=== PATIENT | male | born 1990 | race Caucasian/White ===

== ENCOUNTER 2025-07-03 10:21 | Outpatient (CLI) | payer OTHER, SELFPAY ==
--- NOTE | ~2025-07-03 | XR_ITS ---
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 Technique: 3 view. Findings: Bowel gas pattern unremarkable. No obstruction. No free air. No abnormal calcifications No acute osseous abnormality. Impression: 1. No acute abnormality. Reviewed, dictated and finalized at location P. AL TOWER OPERATOR Impression: 1. No acute abnormality.
--- OUTSIDE RECORDS SUMMARY | 2025-07-03 12:41 | XMS_ITS | Clinical Summary ---
Author Organization [facility] Address Pending sale to [facility] [place] [address] Care Team Providers Care Physician Neonatology Name Role Phone Joao Leung MD Primary Care Provider [phone] Social History Tobacco Use Types Packs/Day Years Used Date Smoking Tobacco: Never Assessed Sex and Gender Information Value Date Recorded Sex Assigned at Not on file Legal Sex Male 6:38 PM CDT Gender Identity Not on file Sexual Orientation Not on file Plan of Treatment Health Maintenance Due Date Last Done Comments Annual Physical 1991 Hepatitis C 2006 Hepatitis B Vaccines (1 of 3 - 19+ 3-dose series) 2007 HPV Vaccines (1 - 3-dose SCD M series) 2015 COVID-19 Vaccine (2024-2 6 season) 2025 04/18/2021, 03/25/2021 Influenza Adult (#1) 2025 DTaP, Tdap and Td Vaccines ( 2 - Td or Tdap) 07/25/2031 07/25/2021 Hepatitis A Vaccines Aged Out No long er eligible based on patient's age to complete this topic Meningococcal B Vaccine Aged Out No l onger eligible based on patient's age to complete this topic Meningococcal Vaccine Aged Out No naldo stephanie eligible based on patient's age to complete this topic Pneumococcal Vaccine: Pediatrics (0 to 5 Years) and At-Risk Patients (6 to 49 Years) Aged Out No longer eligible b ased on patient's age to complete this topic RSV Immunizations Under 20 Months Aged Out No longer eligible b ased on patient's age to complete this topic Insurance [facility] Care Teams Physician Neonatology Relationship Specialty Start Date End Date Joao Leung MD [address] [place] [address] PCP - General FAMILY PRACTICE 07/30/21
--- OUTSIDE RECORDS SUMMARY | 2025-07-03 12:41 | XMS_ITS | Clinical Summary ---
Author Organization [facility] Address [address] [place] [address] Care Team Providers Care Range Mechanic Name Role Phone Unavailable Primary Care Provider Unavailabl e Allergies No known active allergies Medications No known medications Active Problems No known active problems Encounters Date Type Department Care Team Description 06/29/2025 7:30 AM PERSONAL INSURANCE ADVISOR Office Visit [facility] Urology [facility] [address] [facility] [address] [place] [address] Jaden Boyd MD Gross hematuria (Primary Dx) from Last 3 Months Social History Tobacco Use Types Packs/Day Years Used Date Smoking Tobacco: Never Smokeless Tobacco: Never Tobacco Cessation:Counseling Given: Yes Alcohol Use Standard Drinks/Week Comments Yes 0 (1 standard drink = 0.6 oz pur e alcohol) Sex and Gender Information Value Date Recorded Sex Assigned at Not on file Legal Sex Male 2:19 PM PERSONAL INSURANCE ADVISOR Gender Identity Not on file Sexual Orientation Not on file Last Filed Vital Signs Vital Sign Reading Time Taken Comments Blood Pressure 136/86 06/29/2025 7:40 AM PERSONAL INSURANCE ADVISOR Pulse 60 06/29/2025 7:40 AM PERSONAL INSURANCE ADVISOR Temperature - - Respiratory Rate - - Oxygen Saturation - - Inhaled Oxygen Concentration - - Weight - - Height - - Body Mass Index - - Plan of Treatment Health Maintenance Due Date Last Done Comments HEPATITIS B VACCINES (2 of 3 - 3-dose series) 06/11/20 00 05/14/2000 DTAP/TDAP/TD VACCINES (1 - Tdap) 2007 INFLUENZA VACCINE (#1) 2025 HPV VACCINES (No Doses Required) Completed Procedures Procedure Name Priority Date/Time Associated Diagnosis Comments URINALYSIS MICROSCOPY ONLY Routine 06/29/2025 11:29 AM PERSONAL INSURANCE ADVISOR Gross hematuria POC URINALYSIS DIPSTICK AUTOMATED Routine 06/29/2025 7:44 AM PERSONAL INSURANCE ADVISOR Gross hematuria from Last 3 Months Results * URINALYSIS MICROSCOPY ONLY (06/29/2025 11:29 AM PERSONAL INSURANCE ADVISOR) WBC UA NONE SEEN < OR = 5 /HPF [facility] RBC UA NONE SEEN < OR = 2 /HPF [facility] EPITHELIAL CELLS, URINE NONE SEEN < OR = 5 /HPF [facility] BACTERIA UA NONE SEEN NONE SEEN /HPF [facility] HYALINE CAST NONE SEEN NONE SEEN /LPF [facility] URINE NOTE [facility] Comment: This urine was analyzed for the presence of WBC, RBC, bacteria, casts, and other formed elements. Only those elements seen were reported. Test Performed at: [place] [address] [place] [id number] Felipe Burton Urine URINE SPECIMEN OBTAINED BY CLEAN CATCH PROCEDURE / Unknown 06/29/2025 11:29 AM PERSONAL INSURANCE ADVISOR 06/30/2025 1:17 AM PERSONAL INSURANCE ADVISOR Jaden Boyd MD URINE ORDERABLES Final Result [facility] [phone] [place] [address] [place] [id number] * (ABNORMAL) POC URINALYSIS DIPSTICK AUTOMATED (06/29/2025 7:44 AM PERSONAL INSURANCE ADVISOR) COLOR UA POC Yellow Pale to Dark Yellow [facility] CLARITY UA POC Clear Clear, Other [facility] GLU[facility]SE [facility] POC Negative Negative, Normal [facility] BILIRUBIN UA POC Negative Negative [facility] [place]ES UA POC Negative Negative [facility] SPECIFIC GRAVITY UA POC 1.010 1.000 - 1.030 [facility] BLOOD UA POC Trace(A) Negative [facility] PH UA POC 7.0 5.0 - 8.0 [facility] PROTEIN UA POC Negative Negative [facility] UROBILINOGEN UA POC 1.0 <2.0 mg/dL [facility] NITRITE UA POC Negative Negative [facility] LEUKOCYTE ESTERASE UA POC Negative Negative [facility] [id number] [facility] K[facility] EXP DATE POC 04/17/2026 [facility] Urine 06/29/2025 7:44 AM PERSONAL INSURANCE ADVISOR us Jaden Boyd MD POINT OF CARE TESTING Final R esult [facility] UROLOGY [facility] CLIA# [id number] [facility] [address] [place] [address] from Last 3 Months Insurance [facility] [id number] POS II
== END 2025-07-03 10:22 | disposition home or self-care (01) ==
LOC: ANHIMG 10:42
DX: R31.9 Hematuria, unspecified (principal)
CPT/HCPCS: 74018